=== PATIENT | male | born 1965 | race Caucasian/White ===

== ENCOUNTER 2017-01-17 10:24 | Emergency (ER) | payer OTHER ==
[~2017-01-17] VITALS: Ht 177.8 cm; Wt 122.5 kg
[~2017-01-17 10:24] MED LIST: CYCLOBENZAPRINE10 M1 PO; PERCOCET 5-3251 EACH PO; PREDNISONE20 M1 PO
[2017-01-17 10:26] VITALS: BP 152/76
[2017-01-17] MEDS ORDERED: LOSARTAN POTASS50 M1 PO (11:15)
[2017-01-17] MEDS ORDERED: DUEXIS 800-26.1 EACH PO (11:16)
--- NOTE | 2017-01-17 11:30 | ED UPPER/LOWER EXTREMITY COMPL ---
History of Present Illness General Chief Complaint: Laceration Procedure Stated Complaint: LAC TO L THUMB Source: patient Exam Limitations: no limitations Vital Signs & Intake/Output Vital Signs & Intake/Output Vital Signs Date Time Temp Pulse Resp B/P Pulse O2 O2 Flow FiO2 Ox Delivery Rate 01/17 1141 99 Room Air 01/17 1026 97.1 70 18 152/76 99 Room Air Allergies Coded Allergies: acetaminophen (From Vicodin) (Intermediate, GENERIC VICODIN - DIZZINESS 02/09/16 ) hydrocodone (From Vicodin) (Intermediate, GENERIC VICODIN - DIZZINESS 02/09/16) Reconcile Medications Ibuprofen/Famotidine (Duexis 800-26.6 MG Tablet) 800 MG-26.6 MG TABLET 1 TAB PO TID GI (Reported) Losartan Potassium 50 MG TABLET 1 TAB PO DAILY HEART (Reported) Triage Note: STATES THAT HE WAS USING A RENUKA AND HE WENT TO GRAB IT AND OBTAINED A CUT TO HIS L HAND. DRESSING IN PLACE AT TRIAGE. REFUSES PAIN MEDS Triage Nurses Notes Reviewed? yes Onset: Abrupt Duration: constant Timing: single episode today Severity: mild Severity Numbers: 1 HPI: Patient is a 51-year-old male who presents emergency room stating that today he accidentally struck the left hand webspace between the first and second digit to a renuka resulting in a laceration. Patient bleeding was controlled prior to arrival. Patient is right arm dominant. Tetanus is unknown. Complains of 1/10 localized pain. (NANDO FIELDS) Past History Travel History Traveled to [place] past 21 day No Medical History Any Pertinent Medical History? see below for history Neurological: NONE EENT: NONE Cardiovascular: hypertension Respiratory: asthma Gastrointestinal: NONE Hepatic: NONE Renal: NONE Musculoskeletal: NONE Psychiatric: NONE Endocrine: NONE Blood Disorders: NONE Cancer(s): NONE Surgical History Surgical History: non-contributory Psychosocial History Who do you live with Mother Services at Home None What is your primary language [place] Tobacco Use: Never used ETOH Use: denies use Illicit Drug Use: denies illicit drug use Family History Hx Contributory? No (NANDO FIELDS) Review of Systems Review of Systems Constitutional: Reports: no symptoms. EENTM: Reports: no symptoms. Respiratory: Reports: no symptoms. Cardiovascular: Reports: no symptoms. Gastrointestinal/Abdominal: Reports: no symptoms. Genitourinary: Reports: no symptoms. Musculoskeletal: Reports: see HPI. Skin: Reports: see HPI. Neurological/Psychological: Reports: no symptoms. Hematologic/Endocrine: Reports: see HPI, bleeding. Immunological: Reports: no symptoms. All Other Systems: Reviewed and Negative (NANDO FIELDS) Physical Exam Physical Exam General Appearance: no apparent distress, alert, comfortable Neurologic/Tendon: normal sensation, normal motor functions, normal tendon functions, responds to pain, no evidence tendon injury, no pulse deficit Skin: normal color, warm/dry Comments: Well-developed well-nourished no apparent distress. HEENT: Atraumatic, extraocular motion intact Neck: Supple, no lymphadenopathy Back: Nontender Respiratory: No respiratory distress Extremities: No edema, full range of motion Neuro: Alert and oriented x3 Psych: Mood affect normal, normal memory normal judgment. Diagram Hands Front 1) Noted 1 centimeter superficial mildly gaping laceration with no active bleeding Full active range of motion full resisted range of motion with flexion abduction and abduction no tendon deficit no exposed bone (NANDO FIELDS) Progress Differential Diagnosis: arterial insufficiency, compartment syndrome, contusion, dislocation, DVT, fracture, gout, septic arthritis, sprain, tendon injury Plan of Care: Patient has no concerns of tendon deficit this time. Margins were revised bacitracin was applied with bandage patient tolerated well (NANDO FIELDS) Departure Departure Disposition: HOME OR SELF CARE Condition: Stable Clinical Impression Primary Impression: Laceration of left hand Referrals: NOMI BENITEZ MD (PCP/Family) Additional Instructions: As discussed begin to apply bacitracin to the area once a day for the following 4 days then leave area open to improve healing. If you note signs of infection redness, pain, swelling, discharge return to emergency room. Return to emergency room follow-up with primary care doctor in 7-9 days for suture removal. Departure Forms: Customer Survey General Discharge Information (NANDO FIELDS) PA/GENERAL ASSIGNMENT REPORTER Co-Sign Statement Statement: ED Attending supervision documentation- [] I saw and evaluated the patient. I have also reviewed all the pertinent lab results and diagnostic results. I agree with the findings and the plan of care as documented in the PA's/GENERAL ASSIGNMENT REPORTER's documentation. [X] I have reviewed the ED Record and agree with the PA's/GENERAL ASSIGNMENT REPORTER's documentation. [] Additions or exceptions (if any) to the PAs/GENERAL ASSIGNMENT REPORTER's note and plan are summarized below: [] (RUBI FELIPE,ADEN) Procedures Laceration/Wound Repair Laceration/Wound Repair: Wound Location: upper extremity (LEFT WEBSPACE 1-2) Wound's Depth, Shape: linear, superficial Wound Length (cm): 1 Wound Explored: clean, no foreign body removed, irrigated extensively Irrigated w/ Saline (ccs): 360 Betadine Prep? Yes Anesthesia: 1% lidocaine Volume Anesthetic (ccs): 3 Wound Repaired With: sutures Suture Size/Type: 5:0 Number of Sutures: 3 Progress: Margins were revised the suture placement patient tolerated well (NANDO FIELDS)
== END 2017-01-17 12:28 ==
LOC: ERH 10:24
DX: S61.412A Laceration without foreign body of left hand, initial encounter (principal); W29.8XXA Contact with other powered hand tools and household machinery, initial encounter; Y93.9 Activity, unspecified; Y92.9 Unspecified place or not applicable
CPT/HCPCS: 90471; 90714